=== PATIENT | male | born 1950 | race Caucasian/White ===

== ENCOUNTER 2022-06-30 10:24 | Emergency (ER) | payer MEDICARE ==
[~2022-06-30] VITALS: Ht 170.2 cm; Wt 77.2 kg
[2022-06-30 10:38] VITALS: BP 126/75
[2022-06-30 10:45] VITALS: BP 118/75
[2022-06-30 11:00] VITALS: BP 110/68
[2022-06-30 11:15] VITALS: BP 117/70
[2022-06-30 11:30] VITALS: BP 115/74
[2022-06-30] MEDS ORDERED: ZPAK PO (11:39)
[2022-06-30 11:46] VITALS: BP 108/68
== END 2022-06-30 12:00 | disposition home or self-care (01) ==
LOC: ED 10:24
DX: J06.9 Acute upper respiratory infection, unspecified (principal); Z20.822 Contact with and (suspected) exposure to COVID-19